=== PATIENT | male | born 1975 | race Two or more races ===

== ENCOUNTER 2021-09-07 17:27 | Emergency (ER) | payer OTHER ==
[~2021-09-07] VITALS: Ht 180.3 cm; Wt 81.6 kg
[2021-09-07 22:55] LABS: Hematocrit 43.9 % (41.0-53.0); Hemoglobin 15.2 g/dL (13.5-17.5); Mean Corpuscular Hemoglobin 34.6 pg (28.0-32.0); Mean Corpuscular Hgb Conc. 34.6 g/dL (32.0-36.0); Red Blood Cells 4.39 10^6/uL (4.5-5.90); Red Cell Distribution Width 12.8 % (11.8-14.3); White Blood Cell 9.7 10^3/uL (4.4-10.8)
[2021-09-07 23:02] LABS: Basophils % (manual) 0 (0.0-2.0); Blast Cells 0; Eosinophils % (manual) 0 (0-7); Metamyelocytes % 0; Myelocytes % 0; Promyelocytes % 0; Reactive Lymphocytes 0
[2021-09-07 23:09] LABS: Albumin 3.9 g/dL (3.4-5.0); Potassium 4.8 mmol/L (3.5-5.1)
[2021-09-07 23:16] LABS: BUN/Creatinine Ratio 15.8; Bilirubin, Total 5.5 mg/dL (0.2-1.0); Calcium 12.6 mg/dL (8.5-10.1); Total Protein 7.9 g/dL (6.4-8.2)
[2021-09-07] MEDS ORDERED: KETOROLAC TROMETH 60MG/2ML VIAL IM ONE (23:30)
[2021-09-07 23:31] LABS: Band Neutrophils % (manual) 4; Lymphocytes % (manual) 21 (10.0-50.0); Monocytes % (manual) 20 (0-12)
[2021-09-08 04:05] VITALS: BP 126/73
== END 2021-09-08 06:08 | disposition home or self-care (01) ==
LOC: EDBD 17:27 → ER 17:27
DX: N20.0 Calculus of kidney (principal); E83.52 Hypercalcemia; E80.6 Other disorders of bilirubin metabolism; Z85.05 Personal history of malignant neoplasm of liver; Z88.2 Allergy status to sulfonamides
CPT/HCPCS: 36415; 74176; 80053; 84484; 85007; 85027; 93005; 96372; 99285; J1885